=== PATIENT | female | born 1985 | race Caucasian/White ===

== ENCOUNTER 2020-11-20 15:04 | Outpatient (CLI) | payer OTHER, SELFPAY ==
[2020-11-20 15:23] LABS: Hematocrit 34.8 % (37.0-47.0); Hemoglobin 11.5 g/dL (12.0-15.0); Mean Corpuscular Hemoglobin 30.4 pg (26-34); Mean Corpuscular Volume 92.1 fl (80-100); Platelet Count Result 264 k/mm3 (150-375); Red Blood Count 3.78 M/mm3 (4.2-5.4); Red Cell Distribution Width 13.3 % (11.5-14.5); White Blood Count 7.9 K/mm3 (4.5-10.0)
[2020-11-21 08:01] LABS: Rapid Plasma Reagin Non-Reactive (NonReactive)
== END 2020-11-20 15:05 | disposition home or self-care (01) ==
LOC: ANHLAB 15:07
PROVIDERS: Visit Provider Student in an Organized Health Care Education/Training Program
DX: O34.211 Maternal care for low transverse scar from previous cesarean delivery (principal); Z3A.38 38 weeks gestation of pregnancy
CPT/HCPCS: 36415; 85027; 86592; 86850; 86900; 86901

== ENCOUNTER 2020-11-21 06:53 | Inpatient (IN) | payer OTHER, SELFPAY ==
--- NOTE | 2020-11-13 14:30 | PC.NURSE ---
PATIENT STATES SHE WILL BE A C/S ON 11/20/20- NOT SCHEDULED YET BY DR MOONEY
[2020-11-21] VITALS (56 sets, daily range): BP systolic 80–130; BP diastolic 17–107; PULSE 45–106; RESP 16–18; TEMP 36.1–37.2; O2SAT 88–100; BMI 28.3
--- NOTE | 2020-11-21 06:38 | PM.IMHP ---
H&P: HPI History of Present Illness Date/Time: 11/21/20 06:38 Chief Complaint: intrauterine at term prior section CHTN IUGR Narrative: 35 yo who presents for repeat section. Pt has been complicated by prior section, CHTN, IUGR. She endorses good FM. She denies any regular contractions. She denies any preeclampsia symptoms. Review of Systems Cardiovascular: Cardiovascular: Denies chest pain, Denies leg edema, Denies palpitations, Denies dyspnea and Denies dyspnea on exertion Respiratory: Respiratory: Denies cough, Denies dyspnea and Denies dyspnea on exertion Gastrointestinal: Gastrointestinal: Denies abdominal pain, Denies constipation, Denies diarrhea, Denies nausea and Denies vomiting Genitourinary: Genitourinary: Denies hematuria, Denies urinary frequency, Denies dysuria, Denies pelvic pain, Denies urinary incontinence and Denies vaginal discharge Neurologic: Reports system reviewed and no additional complaints, except as documented Psychiatric: Psychiatric: Reports no additional psychiatric complaints Endocrine: Endocrine: Denies palpitations [facility] Family History Family History (Updated 11/13/20 @ 14:24 by Monika Bacon RN) Father Heart valve replaced Heart disease Hypertension Mother Cerebrovascular accident Diabetes mellitus Social History Social History Substance use: never Spiritual care concerns: No Meds Home Medications and Allergies Home Medications Medication Instructions Recorded Confirmed Type aspirin [Aspirin Low Dose] 81 mg PO DAILY 11/13/20 11/13/20 History prenat.vits,leonardo,[id number] 1 tablet PO DAILY 11/13/20 11/13/20 History [ #2] Allergies Allergy/AdvReac Type Severity Reaction Status Date / Time No Known Allergies Allergy Unknown Unverified 12/24/15 14:22 Exam Const: General: no acute distress Eyes: EOM: EOMs intact bilaterally Neck: Neck: supple Thyroid: thyroid normal Chest: Breast/axilla inspection: normal inspection of the breasts Breast/axilla palpation: normal palpation of the breasts, normal palpation of the axillae and no axillary lymphadenopathy Resp: Effort & Inspection: normal respiratory effort Auscultation: clear to auscultation bilaterally Cardio: Rate: regular rate Rhythm: regular rhythm GI: Inspection: striae and other (Gravid) GI Palp: Yes Soft to palpation, No Tenderness to palpation present (GI) and No Guarding due to palpation present (GI) Auscultation: normal bowel sounds : External Female Exam: normal external appearance Speculum Exam - Vagina: normal vaginal discharge and No vaginal bleeding OB/external & speculum: external exam normal; No vaginal bleeding Manual OB Exam: Deferred manual OB exam Amniotic Fluid: no fluid Skin: General skin exam: normal color and no rashes or lesions noted Neuro: Cognition (Neuro): normal cognition Speech: normal speech Extrem: General: normal to inspection and no edema Psych: Mental Status: mental status grossly normal Affect: normal affect Assessment and Plan Assessment and plan (1) Supervision of high risk , unspecified, third trimester: Code(s): O09.93 - Supervision of high risk , unspecified, third trimester Status: Acute Assessment and Plan: 35 yo at 38w5d Rh+ GBS neg (2) History of section complicating : Code(s): O34.219 - Maternal care for unspecified type scar from previous delivery Status: Acute Assessment and Plan: prior x1 for breech presentation desires repeat (3) Chronic hypertension in : Code(s): O10.919 - Unspecified pre-existing hypertension complicating , unspecified trimester Status: Acute Assessment and Plan: pt with intermittently elevated BP in office PIH labs wnl denies any preeclampsia symptoms (4) Intrauterine growth restriction (IUGR) aff
--- NOTE | 2020-11-21 06:46 | WPDHPUPDATE1 ---
History and Physical Update Update Date/Time: 11/21/20 06:46 History and Physical has been reviewed, including an updated exam of the patient. There are NO changes in the patient's condition. Risks, benefits, and alternatives have been discussed and questions answered. Patient agrees to proceed with procedure.
--- NOTE | 2020-11-21 07:07 | WPDANESEPPF ---
Anes - Initial Pre Proc Eval Procedure: Operation Date: 11/21/20 09:00 Proposed Procedures p Repeat Section - Sandeep Rose MD Date/Time: 11/21/20 07:07 Surgeon: Sandeep Rose MD Pre Op Diagnosis: c/s Patient Data Age: 35 Gender: F Height: Weight: Allergies Allergy/AdvReac Type Severity Reaction Status Date / Time No Known Allergies Allergy Unknown Unverified 12/24/15 14:22 Home Medications Medication Instructions Recorded Confirmed Type aspirin [Aspirin Low Dose] 81 mg PO DAILY 11/13/20 11/13/20 History prenat.vits,leonardo,lvg-rhnv-fwdtw 1 tablet PO DAILY 11/13/20 11/13/20 History acetaminophen [Mapap 650 mg PO Q6H PRN #30 tablet 11/23/20 Rx (acetaminophen)] ibuprofen 600 mg PO Q6H PRN #30 tablet 11/23/20 Rx oxycodone-acetaminophen 1 tablet PO Q6H PRN #28 tablet 11/23/20 Rx Patient hx anesthesia problems: none Family hx anesthesia problems: none PMFSH Past Medical History Medical History (Updated 11/26/20 @ 08:37 by Mike Rueda DO) Hypertension Family History Family History (Updated 11/13/20 @ 14:24 by Monika Bacon RN) Father Heart valve replaced Heart disease Hypertension Mother Cerebrovascular accident Diabetes mellitus Social History Social History Smoking status: Never smoker Substance use: never Spiritual care concerns: No Anes - Eval Final PreProcedure Day of Procedure 11/21/20 07:07 Patient weight: obese Heart: regular rate and rhythm Lungs: clear to auscultation and normal air movement Airway: Mallampati scale class II Neurological: alert and oriented Last oral intake: >/= 8 hours ASA classification: III Emergent: no Anesthetic plan: proceed Anesthesia type and monitoring: regional spinal and standard monitoring Informed Consent: The patient's anesthetic plan and its attendant risks and benefits were discussed with the patient/family/POA. Questions were solicited and answers provided to the satisfaction of the patient/family/POA.
[2020-11-21] MEDS: LACTATED RINGERS 1,000 ML 125 ML IV CONT ×2 (07:47→09:08)
[2020-11-21] MEDS: ceFAZolin 2 GM/D5W 50 ML 2 GM/50 ML BAG IVPB (09:18)
--- NOTE | 2020-11-21 10:15 | W.PM.PROC2 ---
Procedure Note - Detailed Date of Procedure 11/21/20 Pre-op Diagnosis intrauterine at term prior section CHTN IUGR Post-op Diagnosis same Procedure Performed repeat low transverse section Surgeon Sandeep Rose MD Anesthesia spinal and epidural Description of Procedure The patient was taken to the operating room. A combined spinal epidural anesthesic was administered and found to be adequate at a t-10 level. The patient was placed in a supine position with a slight left lateral tilt. A brooks catheter was placed with return of clear urine. A Bovie grounding pad was placed. Surgical prep was performed and surgical drapes were placed. A surgical time out was performed. A Pfannenstiel skin incision was then made with the scalpel and carried through to the underlying layer of fascia. The fascia was then incised in the midline and the incision was extended laterally with the Richard scissors. The superior aspect of the fascia was then grasped with the Romeo clamps, elevated, and the underlying rectus muscles dissected off bluntly and sharply. Attention was then turned to the inferior aspect of this incision which, in a similar fashion, was grasped, tented up with the Romeo clamps, and the rectus muscles dissected off both bluntly and sharply. The rectus muscles were then in the midline. The peritoneum was identified and entered bluntly. The peritoneal incision was then extended superiorly and inferiorly with good visualization of the bladder. The vesico-uterine serosa was identified and dissected to create a bladder flap. The bladder blade was reinserted. The uterus was inspected for rotation. A low-transverse uterine incision was made sharply with the scalpel and entry was made into the uterine cavity. An amniotomy was made and copious amounts of clear fluid were noted on return. The uterine incision was extended laterally bluntly. The bladder blade was removed and the fetus was delivered atraumatically. The nose and mouth were suctioned with a bulb syringe. The umbilical cord was clamped twice and cut. The infant was handed off to the waiting staff. At the time of the delivery, the had good color, tone and grimace. The cried with minimal stimulation. A second segment of umbilical cord was clamped and cut for cord blood gasses. Cord blood was collected for determination of the blood type and for direct Castellon. The placenta was delivered spontaneously without difficulty. The placenta appeared grossly normal and complete. The uterus was exteriorized and cleared of all clots and debris. The uterine incision was repaired using 0-vicryl suture in a running fashion. A second layer of 0 Vicryl suture was used in an imbricating fashion to obtain excellent hemostasis and uterine strength. The uterine closure was inspected for hemostasis. The posterior aspect of the uterus and the broad ligaments were inspected and the posterior cul-de-sac cleared of fluid and blood clots. The uterine closure was again inspected and found to be hemostatic. The uterus was returned to the abdominal cavity. The pericolic gutters were inspected and were cleared of all blood clots and debris. The uterine closure was then re inspected to ensure hemostasis as were all subfascial tissues. The peritoneum was closed using 3-0 vicryl in a running fashion. The fascia was reapproximated with 0-vicryl in a running fashion. The subcutaneous tissue was irrigated and hemostasis achieved with electrocautery. It was reapproximated with 3-0 vicryl in a running fashion. The skin was closed with 4-0 vicryl in a subcuticular fashion. A sterile dressing was applied to the wound. The patient tolerated the procedure well. Sponge, lap and needle counts were correct times three. The patient was taken to recovery in stable condition and without anticipated complications. Estimated Blood Loss 195 Urine Output 100 Drains No Packing No Complications No i
[2020-11-21] MEDS: OXYTOCIN 30 UNITS/NS 500 ML 30 UNITS/500 ML BAG 125 UNITS IV CONT (10:48)
[2020-11-21] MEDS: KETOROLAC 30 MG/ML VIAL (*BKC) IV PUSH (12:50)
--- NOTE | 2020-11-21 13:05 | OBPPTRN ---
Patient transferred to post room # 278 via stretcher. Support person present. Oriented to unit, room, information board, rooming in, admission packet and security measures. Patient verbalizes understanding.
--- NOTE | 2020-11-21 15:13 | PC.NURSE ---
Consult with pt., mother reports infant just completed feeding. 15 minutes of feeding and sleepy not latching to right breast. Reviewed may feed on one breast offer second, if does not feed on second start there next feeding.. Reviewed infant feeding cues, frequencies, duration of feedings, feeding elimination flow sheet, and signs of adequate intake. Demonstrated stimulation techniques to wake infant for feeding. Assisted with to breast. Reviewed positioning/alignment in cross cradle, holding breast in ?U? hold and guided asymmetrical latch on. Discussed rational for each. Infant able to latch correctly. Reviewed signs of a correct latch, effective nursing and suck swallow ratio. Infant nursed sleepily with short bursts and would pause and release latch. Attempted a few times, suggested to allow infant to rest and wake at three hours fo next feeding, before if feeding cues noted. Instructed mother to call out for RN assistance if she is unable to latch for feeding or she has discomfort with nursing. Instructed feeding should be initiated three hours from start of last feeding or if feeding cues are noted before. Mother voiced understanding of information shared.
[2020-11-21] MEDS: DEXTROSE 5%/0.45% SOD CHL 1,000 ML 125 ML IV CONT (17:09)
[2020-11-22] VITALS: BP 117/71; PULSE 81; RESP 18; TEMP 36.9; O2SAT 96
[2020-11-22 03:50] VITALS: BP 108/64; PULSE 75; RESP 18; TEMP 37.1; O2SAT 96
[2020-11-22 05:51] LABS: Basophils Percent Auto 0.2 % (0.2-1.2); Eosinophils Percent Auto 0.3 % (0-4.4); Hemoglobin 10.5 g/dL (12.0-15.0); Immature Granulocyte Absolute 0.04 K/mm3 (0.00-0.031); Immature Granulocyte Percent A 0.4 % (0-0.5); Lymphocytes Absolute Auto 0.81 K/mm3 (0.9-3.2); Lymphocytes Percent Auto 7.7 % (18.3-44.2); Mean Corpuscular HGB Conc 33.9 g/dl (32-36); Mean Corpuscular Hemoglobin 31.3 pg (26-34); Mean Corpuscular Volume 92.3 fl (80-100); Mean Platelet Volume 10.8 fl (7.4-10.4); Monocytes Absolute Auto 0.3 K/mm3 (0.1-0.6); Monocytes Percent Auto 3.2 % (2.6-8.5); Neutrophils Absolute Auto 9.3 K/mm3 (1.3-6.7); Neutrophils Percent Auto 88.2 % (45.5-73.1); Platelet Count Result 216 k/mm3 (150-375); Red Blood Count 3.36 M/mm3 (4.2-5.4); Red Cell Distribution Width 13.2 % (11.5-14.5); White Blood Count 10.5 K/mm3 (4.5-10.0)
--- NOTE | 2020-11-22 07:22 | PM.OBPNVD ---
OB - PN: Subj Subjective Date/time seen: 11/22/20 07:22 Interval history: Patient doing well this AM. she has not yet ambulated out of bed. She is tolerating PO. She reports adequate pain control. Her bleeding is normal and she reports normal lochia. She denies fever, chills, N/V. She has not yet passed flatus. Patient comments: no complaints and pain well controlled; no flatus present OB - PN: Obj Data Labs CBC & Chem 7: 11/22/20 03:40 Labs: Laboratory Results - last 24 hr 11/22/20 03:40 WBC 10.5 H RBC 3.36 L Hgb 10.5 L Hct 31.0 L MCV 92.3 MCH 31.3 MCHC 33.9 RDW 13.2 Plt Count 216 MPV 10.8 H Immature Gran % (Auto) 0.4 Neut % (Auto) 88.2 H Lymph % (Auto) 7.7 L Wilson % (Auto) 3.2 Eos % (Auto) 0.3 Baso % (Auto) 0.2 Lymph # (Auto) 0.81 L Wilson # (Auto) 0.3 Eos # (Auto) 0.0 Baso # (Auto) 0.0 Abs Immat Gran (auto) 0.04 H Absolute Neuts (auto) 9.3 H Absolute Nucleated RBC 0.0 Nucleated RBC % 0.0 OB - PN A/P Plan day: 1 Plan: routine care Comments: patient doing well this AM s/p brooks, voiding spontaneously tolerating diet H/H stable continue routine PP care anticipate d/c home tomorrow Time Spent With Patient Time: Total time spent is greater than 50% in coordination of care (as documented) at patient's floor/unit and/or counseling patient: Time with patient: less than 15 minutes Review of Systems Constitutional: Constitutional: Reports no additional constitutional complaints Cardiovascular: Cardiovascular: Reports no additional cardiovascular complaints Respiratory: Respiratory: Reports no additional respiratory complaints Gastrointestinal: Gastrointestinal: Reports no additional gastrointestinal complaints Genitourinary: Genitourinary: Reports no additional female genitourinary complaints Exam Const: General: comfortable and no acute distress Resp: Effort & Inspection: normal respiratory effort Auscultation: clear to auscultation bilaterally Cardio: Rate: regular rate GI: GI Palp: Yes Soft to palpation and Yes Tenderness to palpation present (GI) (appropriately tender around incision ) Auscultation: normal bowel sounds Other: fundus firm and below umbilicus Incision C/D/I Urinary Catheter: Urinary Catheter: urine clear Psych: Appearance: grossly normal Mental Status: mental status grossly normal Affect: normal affect
[2020-11-22 07:35] VITALS: BP 116/68; PULSE 70; RESP 18; TEMP 36.9; O2SAT 97
[2020-11-22] MEDS: MULTIVIT/MIN/PREN/FOL AC/IRON TABLET 1 TAB PO (09:31)
[2020-11-22] MEDS: DOCUSATE SODIUM 100 MG CAPSULE PO ×2 (09:31→16:32)
[2020-11-22] MEDS: IBUPROFEN 600 MG TABLET PO ×2 (10:16→16:32)
[2020-11-22] MEDS: HYDROcodone/acetaminophen (*CRX) 5-325 MG TABLET 1 TAB PO (10:16)
--- NOTE | 2020-11-22 10:27 | WPDANLDPN2 ---
Anes-Prog Note L&D Date/Time: 11/22/20 10:27 Comfortable throughout: section Neuraxial method: spinal Epidural/Spinal procedure site: clean & non-tender Neuro status: Neuro function grossly intact. Cardiovascular status: normal Respiratory status: normal Airway patency: baseline Mental status: baseline Post-Op hydration status: normal Vital Signs: Last Vital Signs Temp 36.9 C 11/22/20 07:35 Pulse 70 11/22/20 07:35 Resp 18 11/22/20 07:35 BP 116/68 11/22/20 07:35 Pulse Ox 97 11/22/20 07:35 Pain score (VAS): 0 I/O: Intake & Output 11/21/20 11/22/20 11/22/20 23:59 07:59 15:59 Intake Total 1450 Output Total 200 2150 Balance -200 -700 Post-procedural complaints: none Patient feedback: Patient satisfied with anesthetic care.
--- NOTE | 2020-11-22 10:27 | WPDANLDNPN2 ---
Anes-Prog Note L&D-Neuraxial Date/Time: 11/22/20 10:27 Neuraxial medications: intrathecal PF morphine Opiod-related complaints: none Patient feedback: Patient satisfied with post-operative pain management.
--- NOTE | 2020-11-22 11:35 | PC.NURSE ---
Consult with pt., mother reports is eagerly feeding and fed frequently during the night. Assured mother this is normal behavior and reviewed adequate signs of intake all are above min. required. Mother denies discomfort or difficulties with latching. Nipple care reviewed of lanolin after feeding and warm moist compresses several times per day as needed. Instructed mother to call out for RN assistance if she is unable to latch infant for feeding or she has discomfort with nursing. Instructed feeding should be initiated three hours from start of last feeding or if feeding cues are noted before. Mother voiced understanding of information shared.
[2020-11-22] MEDS: HYDROcodone/acetaminophen (*CRX) 10-325 MG TABLET 1 TAB PO (16:35)
[2020-11-22 20:00] VITALS: BP 121/81; PULSE 81; RESP 16; TEMP 36.9; O2SAT 98
[2020-11-23] MEDS: HYDROcodone/acetaminophen (*CRX) 5-325 MG TABLET 1 TAB PO ×2 (02:37→09:47)
[2020-11-23] MEDS: IBUPROFEN 600 MG TABLET PO ×2 (02:37→09:47)
--- NOTE | 2020-11-23 07:29 | P.DS_ITS ---
DS: Admitting Diagnosis Discharge Date 11/23/20 Admitting Diagnosis intrauterine at term prior section CHTN IUGR OB - DS: Summary OB Procedures : None OB Procedures Intrapartum: OB Procedures: : None Peripartum Data Infant Delivery Method: Section Procedures: Procedures Operation Date: 11/21/20 09:00 Actual Procedure Side Surgeon p Repeat Section Sandeep Rose MD complications: none Status at Discharge Functional status at discharge: independent ambulation Overall status at discharge: patient is progressing back to baseline Time Spent with Patient Time attestation: Total time spent providing and/or coordinating discharge services: Time spent: Less than 30 minutes Exam Const: General: comfortable and no acute distress Resp: Effort & Inspection: normal respiratory effort Auscultation: clear to auscultation bilaterally Cardio: Rate: regular rate GI: Inspection: non-distended GI Palp: Yes Soft to palpation, No Firmness to palpation present (GI), Yes Tenderness to palpation present (GI) (mild tenderness over incision ) and No Guarding due to palpation present (GI) Auscultation: normal bowel sounds Psych: Appearance: grossly normal Mental Status: mental status grossly normal DS: Data Data Completed and Pending Pending studies at discharge: Pending at discharge 11/21/20 11:12 Surgical [PTH] Routine Discharge Plan Discharge Discharging Clinician: Sandeep Rose Patient Disposition: Home, Self-Care Activity: as tolerated and pelvic rest Diet: regular Patient Instructions: Antibiotic Form, (DC) Stand Alone Forms: General Discharge Information Follow-up/Referrals: Sandeep Rose MD [Physician] - 4 Weeks Discharge Medications: New oxycodone-acetaminophen 5-325 mg tablet 1 tablet PO Q6H PRN (Reason: pain) Qty: 28 RF: 0 acetaminophen [Mapap (acetaminophen)] 325 mg Tablet 650 mg PO Q6H PRN (Reason: Mild Pain (1-3)) Qty: 30 RF: 0 ibuprofen 600 mg Tablet 600 mg PO Q6H PRN (Reason: Cramping) Qty: 30 RF: 0 Continued aspirin [Aspirin Low Dose] 81 mg Tablet,Delayed Release (Dr/Ec) 81 mg PO DAILY RF: 0 #2 Tablet 1 tablet PO DAILY RF: 0 Date of admission: 11/21/20 06:53 Primary Care Provider: PHYSICIAN,OXYGEN EQUIPMENT TECHNICIAN Admitting Provider: Sandeep Rose Attending physician on admission: Sandeep Rose Condition: Stable
[2020-11-23 08:00] VITALS: BP 126/73; PULSE 74; RESP 18; TEMP 36.5; O2SAT 98
--- NOTE | 2020-11-23 08:30 | PC.NURSE ---
Consult with pt., observed mother is able to independently latch with appropriate positioning/alignment. Infant eagerly latches on first attempt with long rhythmical draws and frequent swallowing noted. She denies any nipple discomfort, is feeding as required and waking infant to feed if needed. Infant has had at least 8 effective feedings in the past 24 hours, and is currently meeting outcomes for weight, output, jaundice and feeding frequencies. Mother states she feels confident to continue effective at home. Reviewed transition to breast milk, signs of adequate intake, and engorgement/relief. Instructed to call ICP if intake/output less than required. Reviewed regular medications mother is taking. Information provided per [place]. Reviewed community resources on the [facility] website and in the Mom/Baby guide. Information on outpatient services provided. Mother has no further questions at this time. Instructed feeding should be initiated three hours from start of last feeding or if feeding cues are noted before until seen by ICP. Mother voiced understanding of information shared.
[2020-11-23] MEDS: MULTIVIT/MIN/PREN/FOL AC/IRON TABLET 1 TAB PO (09:47)
[2020-11-23] MEDS: DOCUSATE SODIUM 100 MG CAPSULE PO (09:47)
[2020-11-24 07:53] VITALS: BP 131/86; PULSE 75; RESP 16; TEMP 36.8; O2SAT 99
== END 2020-11-23 12:12 | disposition home or self-care (01) | DRG 787 ==
LOC: ANHLDR 06:57 → ANHOB2 13:07
PROVIDERS: Admitting Provider Student in an Organized Health Care Education/Training Program; Visit Provider Student in an Organized Health Care Education/Training Program
PROC: 10D00Z1 Extraction of Products of Conception, Low, Open Approach (ICD-10-PCS; CPT 59514; principal; 2020-11-21 09:00)
DX: O34.211 Maternal care for low transverse scar from previous cesarean delivery (principal); O10.02 Pre-existing essential hypertension complicating childbirth; O36.5930 Maternal care for other known or suspected poor fetal growth, third trimester, not applicable or unspecified; Z3A.38 38 weeks gestation of pregnancy; Z37.0 Single live birth
CPT/HCPCS: 36415; 85025; 85027; 86592; 86850; 86900; 86901; 88307; A9270; J0131; J0690; J1885; J2274; J2370; J2405; J2590; J7120

== ENCOUNTER 2020-11-22 07:54 | Outpatient (RCR) | payer OTHER, SELFPAY ==
[2020-11-07 18:11] VITALS: BP 115/82; PULSE 94
[2020-11-10 10:32] VITALS: BP 129/67; PULSE 68
[2020-11-13 14:28] VITALS: BP 138/89; PULSE 93
[2020-11-16 16:52] VITALS: BP 136/78; PULSE 80
== END 2020-11-28 10:18 | disposition home or self-care (01) ==
LOC: ANHOBOP 07:54
PROVIDERS: Visit Provider Student in an Organized Health Care Education/Training Program
DX: O36.5930 Maternal care for other known or suspected poor fetal growth, third trimester, not applicable or unspecified (principal); Z3A.36 36 weeks gestation of pregnancy; Z3A.37 37 weeks gestation of pregnancy
CPT/HCPCS: 59025